=== PATIENT | female | born 1965 | race Caucasian/White ===

== ENCOUNTER 2025-05-02 11:51 | Emergency (ER) | payer OTHER ==
[~2025-05-02] VITALS: Ht 170.2 cm; Wt 70.0 kg
[2025-05-02 11:54] VITALS: TEMP 36.7; O2SAT 100
[2025-05-02] MEDS: SODIUM CHLORIDE 0.9% 1,000 ML IV ONE (12:35)
[2025-05-02 12:59] LABS: BASOPHILS % 0.1 % (0.0-2.0); EOSINOPHILS % 0.9 % (0.0-5.0); HEMATOCRIT. 42.4 % (36.0-48.0); HEMOGLOBIN. 14.3 g/dL (12.0-16.0); LYMPHOCYTES % 9.2 % (20.0-50.0); MEAN PLATELET VOLUME 7.5 fl (7.4-10.4); MONOCYTES % 4.5 % (2.0-8.0); NEUTROPHILS % 85.3 % (40.0-76.0); PLATELET 227 x1000/uL (130-400); RED BLOOD CELL COUNT 4.80 mill/uL (4.2-5.4); RED CELL DISTRIBUTION WIDTH 13.0 % (11.6-14.6)
[2025-05-02 13:14] LABS: CREATININE 0.7 mg/dL (0.6-1.0); TROPONIN I HIGH SENSITIVITY < 4 ng/L (3.0-34); UREA NITROGEN BLOOD 9 mg/dL (9-23)
[2025-05-02 13:16] LABS: ASPARTATE AMINOTRANSFERASE 17 IU/L (<34); BILIRUBIN DIRECT 0.1 mg/dL (<=3.0); BILIRUBIN TOTAL 0.5 mg/dL (0.1-1.0); PROTEIN TOTAL 6.8 g/dL (6.0-8.3)
[2025-05-02 14:56] VITALS: BP 130/74; PULSE 66; RESP 15; O2SAT 98
== END 2025-05-02 15:26 | disposition home or self-care (01) ==
LOC: ER 11:51
DX: R55 Syncope and collapse (principal); R19.7 Diarrhea, unspecified; I10 Essential (primary) hypertension
CPT/HCPCS: 99284; 96360; 80076; 80048; 83735; 85025; 84484; 36415; 93005; J7030; A4606